=== PATIENT | female | born 1940 | race Caucasian/White ===

== ENCOUNTER → 2020-01-03 | Outpatient (CLI) | payer OTHER ==
[~2020-01-03] MED LIST: FLEXERIL PO; KLOR-CON 1010 MEQ PO; LISINOPRIL10 MG PO; METFORMIN HCL500 MG PO; NITROGLYCERIN0.4 MG; PREDNISONE 20 M20 M1 PO; SIMVASTATIN40 MG PO; TOPROL XL25 MG PO; TRAMADOL 50 MG50 MG PO
== END ==
LOC: SJCVCIMAG 08:04
DX: I08.1 Rheumatic disorders of both mitral and tricuspid valves (principal); E78.5 Hyperlipidemia, unspecified; E11.9 Type 2 diabetes mellitus without complications; I25.10 Atherosclerotic heart disease of native coronary artery without angina pectoris; I10 Essential (primary) hypertension; Z87.891 Personal history of nicotine dependence; Z79.82 Long term (current) use of aspirin; Z79.899 Other long term (current) drug therapy

== ENCOUNTER → 2020-07-04 | Outpatient (CLI) | payer OTHER | LOC: SJCVC 11:30 | PROVIDERS: ATTEND Internal Medicine | DX: I25.118 Atherosclerotic heart disease of native coronary artery with other forms of angina pectoris (principal); I10 Essential (primary) hypertension; E11.9 Type 2 diabetes mellitus without complications; E78.5 Hyperlipidemia, unspecified; E78.1 Pure hyperglyceridemia; R60.9 Edema, unspecified; Z79.82 Long term (current) use of aspirin; Z79.899 Other long term (current) drug therapy ==

== ENCOUNTER 2020-08-31 11:29 | Emergency (ER) | payer OTHER ==
[~2020-08-31] VITALS: Ht 177.8 cm; Wt 117.9 kg
--- NOTE | ~2020-08-31 | EKG ---
[facility] [place] [address] ELECTROCARDIOGRAM REPORT Name: LONIFRANKLIN Stanford Room #: PRE [facility]#: [id number] Admission: Attend Phys: Discharge: Date of : 38 Report #: [id number] THIS REPORT FOR: cc: Koby Rudolph MD, Kirk D. MD Epiphany, Epiphany MD ~ THIS REPORT FOR: //name// [facility] ED Test Date: 2020-08-31 Test Time: 12:15:26 Pat Name: FRANKLIN IVEY Department: Room: Gender: F Family Service Assistant: ECHO : 1940 Requested By: Bobbi Bill Order Number: [id number] MD: Measurements Intervals [place] Rate: 71 P: 27 KS: 179 QRS: 38 QRSD: 87 T: 30 QT: 386 QTc: 420 Interpretive Statements Sinus rhythm Borderline T abnormalities, anterior leads Compared to ECG 06/13/2014 19:28:59 T-wave abnormality now present Sinus bradycardia no longer present [email or web address] By: 1215 1215 Epiphany EpiphMD joanna /EPI
[2020-08-31] MEDS ORDERED: JARDIANCE10 MG PO (12:42)
[2020-08-31] MEDS ORDERED: SYNTHROID125 MC1 PO (12:42)
[2020-08-31] MEDS ORDERED: METOPROLOL SUCC50 MG PO (12:42)
[2020-08-31] MEDS ORDERED: LOSARTAN POTAS100 MG PO (12:42)
[2020-08-31 12:43] LABS: HEMATOCRIT 39.6 % (37.0-47.0); HEMOGLOBIN 13.2 gm/dL (12.0-15.0); MCH 31.7 pg (26.0-34.0); MCHC 33.3 g/dL (28.0-37.0); MCV 95.2 fL (80.0-100.0); PLATELET COUNT 116 thou/uL (150-400); RBC 4.16 mil/uL (4.20-5.00); RDW 14.5 % (10.5-14.5); WBC 2.7 thou/uL (4.0-11.0)
[2020-08-31] MEDS ORDERED: FUROSEMIDE 40 M40 M1 PO (12:45)
[2020-08-31 13:00] LABS: ANION GAP 12 mmol/L (7-16); BUN 21 mg/dL (7-18); CHLORIDE 102 mmol/L (98-107); CO2 22 mmol/L (21-32); CREATININE 1.2 mg/dL (0.6-1.0); GLUCOSE 176 mg/dL (74-106); POTASSIUM 4.4 mmol/L (3.5-5.1); SODIUM 136 mmol/L (136-145)
[2020-08-31 13:11] LABS: ALBUMIN 3.7 g/dL (3.4-5.0); SGOT 44 U/L (15-37); SGPT 44 U/L (30-65); TOTAL BILIRUBIN 0.6 mg/dL (0.2-1.0); TOTAL PROTEIN 7.5 g/dL (6.4-8.2); TROPONIN-I <0.06 ng/mL (<0.06)
[2020-08-31 13:46] LABS: ABSOLUTE NEUTROPHILS 1.6 thou/uL (1.4-8.2); PLATELET ESTIMATE NORMAL
[2020-08-31] MEDS ORDERED: AZITHROMYCIN 2250 MG PO (13:51)
[2020-08-31] MEDS ORDERED: TESSALON PERLE100 MG PO (13:51)
[2020-08-31 14:36] VITALS: BP 118/58
== END 2020-08-31 14:38 | disposition home or self-care (01) ==
LOC: ER 11:29
PROVIDERS: Physician Assistant
DX: U07.1 COVID-19 (principal); J18.9 Pneumonia, unspecified organism; I10 Essential (primary) hypertension; E78.5 Hyperlipidemia, unspecified; E11.9 Type 2 diabetes mellitus without complications; I25.10 Atherosclerotic heart disease of native coronary artery without angina pectoris; Z79.899 Other long term (current) drug therapy; Z87.891 Personal history of nicotine dependence